=== PATIENT | male | born 1980 | race Caucasian/White ===

== ENCOUNTER 2019-01-08 12:29 | Emergency (ER) | payer MEDICAID, OTHER ==
[~2019-01-08] VITALS: Ht 167.6 cm; Wt 76.0 kg
[2019-01-08 13:13] VITALS: BP 114/66
== END 2019-01-08 15:12 | disposition home or self-care (01) ==
LOC: ER 13:55
DX: R21 Rash and other nonspecific skin eruption (principal)
CPT/HCPCS: 99283